=== PATIENT | female | born 1990 | race Caucasian/White ===

== ENCOUNTER 2018-07-28 07:15 | Outpatient (CLI) | payer BC ==
[2018-07-28 08:01] LABS: Appearance,Urine Cloudy (Clear); Bacteria,Urine Rare /hpf; Bilirubin,Urine Negative (Negative); Blood,Urine Negative (Negative); Color,Urine Yellow; Glucose,Urine (UA) Negative (Negative); Ketones,Urine 1+ (Negative); Leukocyte Esterase,Urine Large (Negative); Mucus,Urine Occasional /hpf; Nitrite,Urine Negative (Negative); Protein,Urine Negative (Negative); RBC,Urine 1 /hpf (0-5); Specific Gravity,Urine 1.018 (1.001-1.035); Squamous Epithelial Cell,Urine 5 /hpf (0-4); Urobilinogen,Urine <2.0 mg/dL (<2.0); WBC,Urine 20 /hpf (0-5)
[2018-07-28 08:39] LABS: Basophils % (A) 0 %; Eosinophils # (A) 0.2 k/uL (0-0.7); Eosinophils % (A) 2 %; HCT 38.1 % (34.0-46.0); HGB 12.8 gm/dL (11.4-16.0); Lymphocytes # (A) 1.9 k/uL (1.0-4.8); Lymphocytes % (A) 14 %; MCH 29.3 pg (25.0-35.0); MCHC 33.6 g/dL (31.0-37.0); MCV 87.3 fL (80.0-100.0); Mean Platelet Volume 7.8; Monocytes # (A) 0.6 k/uL (0-1.0); Monocytes % (A) 4 %; Neutrophils # (A) 10.6 k/uL (1.3-7.7); Neutrophils % (A) 78 %; Platelet Count 249 k/uL (150-450); RBC 4.37 m/uL (3.80-5.40); RDW 12.9 % (11.5-15.5); WBC 13.6 k/uL (3.8-10.6)
[2018-07-28 08:51] LABS: ALT 29 U/L (9-52); AST 17 U/L (14-36); Blood Urea Nitrogen 7 mg/dL (7-17); LDH 375 U/L (313-618); Uric Acid 4.5 mg/dL (3.7-7.4)
[2018-07-28 10:03] VITALS: BP 163/86; PULSE 80; RESP 18; TEMP 97.3
--- NOTE | 2018-07-28 19:21 | P.MSEPDOC ---
Presenting Problems - Arrival Data Date of Arrival on Unit: 07/28/18 Time of Arrival on Unit: 07:15 Mode of Transport: Ambulatory - Complaint OB-Reason for Admission/Chief Complaint: Possible Onset of Labor Comment: pt presents to triage with contractions and pressure Medical History - Information : 2 Para: 1 Term: 0 : 1 Abortions: Spontaneous or Elective: 0 Number of Living Children: 1 - Gestational Age Gestational Age by JOHN (wks/days): 33 Weeks and 5 Days Review of Systems - Review of Systems Constitutional: No problems Breast: No problems ENT: No problems Cardiovascular: No problems Respiratory: No problems Gastrointestinal: No problems Genitourinary: No problems Musculoskeletal: No problems Neurological: No problems Skin: No problems Vital Signs - Temperature Temperature: 97.3 F Temperature Source: Temporal Artery Scan - Pulse Right Brachial Pulse Rate: 80 Pulse Assessment Method: Automatic Cuff - Respirations Respiratory Rate: 18 Oxygen Delivery Method: Room Air - Blood Pressure Right Arm Blood Pressure: 163/86 Blood Pressure Mean: 111 Blood Pressure Source: Automatic Cuff Medical Screen Scoring (Pre) - Cervical Exam Dilation: 0 cm = 0 Effacement: Exam Deferred Membranes: Intact - Uterine Contractions Frequency: > 5 minutes apart = 1 Duration: > 40 seconds = 2 Intensity: N/A - Maternal Vital Signs Maternal Temperature: N/A Maternal Blood Pressure: Systolic >139 = 2 Signs of Preeclampsia: N/A Maternal Respirations: N/A - Pain Assessment Pain Location and Character: Pelvic Pain Scale Used: Numeric (1 - 10) Pain Intensity: 4 Pain Description: Pressure Pain Radiation Location: none Pain Frequency: Intermittent Pain Duration: 2 Pain Duration Units: Hours Pain Behavior: Vocalization Pain Aggravating Factors: Contractions - Maternal Trauma Maternal Trauma: N/A - Assessment Baseline FHR: 130 Heart Rate - NICHD Category: Category I (Normal) = 0 NST: Reactive Position: N/A Station: N/A - Total Score Total Score (Pre): 5 - Level of Risk Level of Risk: Low (0-5) Physician Notification (Pre) - Physician Notified Physician Notified Date: 07/28/18 Physician Notified Time: 07:50 Physician/Practitioner Notifed:: Dr. Veliz Spoke With: New Order Received: Yes - Notification Comment Comment: obtain PIH blood work Medical Screen Scoring (Post) - Cervical Exam Dilation: 0 cm = 0 Effacement: Exam Deferred Membranes: Intact - Uterine Contractions Frequency: > 5 minutes apart = 1 Duration: N/A Intensity: N/A - Maternal Vital Signs Maternal Temperature: N/A Maternal Blood Pressure: Systolic >139 = 2 Signs of Preeclampsia: N/A Maternal Respirations: N/A - Pain Assessment Pain Scale Used: Numeric (1 - 10) Pain Intensity: 4 - Maternal Trauma Maternal Trauma: N/A - Assessment Heart Rate: 130 Position: N/A - Total Score Total Score (Post): 3 - Post Treatment Level of Risk Post Treatment Level of Risk: Low (0-5) Physician Notification (Post) - Physician Notified Physician Notified Date: 07/28/18 Physician Notified Time: 09:35 Physician/Practitioner Notified:: Dr. Marion Spoke With: Dr. Marion New Order Received: Yes - Notification Comment Comment: increase fluids, off work till wednesday when she sees Dr. Lizama in the office, pt to return to triage on Wednesday for bp check and nst, Disposition - Disposition OB Disposition: Triage Discharge Date: 07/28/18 Discharge Time: 09:40 I agree with the RN Medical Screening Exam: Yes Risk & Benefit of care provided described in d/c instruction: Yes Diagnosis: GESTATIONAL HTN W/O SIGNIFICANT PROTEINURIA, THIRD TRIMESTER
== END 2018-07-28 09:40 | disposition home or self-care (01) ==
LOC: FBPOP 07:15
PROVIDERS: ATTEND Obstetrics & Gynecology
DX: O13.3 Gestational [pregnancy-induced] hypertension without significant proteinuria, third trimester (principal); Z3A.33 33 weeks gestation of pregnancy
CPT/HCPCS: 59025; 81001; 82565; 82570; 82731; 83615; 84156; 84450; 84460; 84520; 84550; 85025; 99213

== ENCOUNTER 2018-07-31 14:07 | Outpatient (CLI) | payer BC ==
[2018-07-31 14:30] VITALS: BP 135/87; PULSE 76; RESP 17; TEMP 97.7
--- NOTE | 2018-08-30 10:42 | P.MSEPDOC ---
Presenting Problems - Arrival Data Date of Arrival on Unit: 07/31/18 Time of Arrival on Unit: 14:07 Mode of Transport: Ambulatory - Complaint OB-Reason for Admission/Chief Complaint: NST, Other Comment: pt presents to triage for nst and blood pressure check, pt reports being in triage last for contractions and had elevated bps, pt has hx of pre eclampsia with first but denies issues with current , denies edema/harkins/blurred vision/ruq pain, abd soft and non tender, reports + fm, denies lof/vb/contractions at present time Medical History - Information : 2 Para: 1 Term: 0 : 1 Abortions: Spontaneous or Elective: 0 Number of Living Children: 1 - Gestational Age Gestational Age by JOHN (wks/days): 34 Weeks and 1 Days Review of Systems - Review of Systems Constitutional: No problems Breast: No problems ENT: No problems Cardiovascular: No problems Respiratory: No problems Gastrointestinal: No problems Genitourinary: No problems Musculoskeletal: No problems Neurological: No problems Skin: No problems Vital Signs - Temperature Temperature: 97.7 F Temperature Source: Oral - Pulse Right Brachial Pulse Rate: 76 Pulse Assessment Method: Automatic Cuff - Respirations Respiratory Rate: 17 Oxygen Delivery Method: Room Air O2 Sat by Pulse Oximetry: 97 - Blood Pressure Right Arm Blood Pressure: 135/87 Blood Pressure Mean: 103 Blood Pressure Source: Automatic Cuff Medical Screen Scoring (Pre) - Cervical Exam Dilation: Exam Deferred Effacement: Exam Deferred Membranes: Intact - Uterine Contractions Frequency: N/A Duration: N/A Intensity: N/A - Maternal Vital Signs Maternal Temperature: N/A Maternal Blood Pressure: N/A Signs of Preeclampsia: N/A Maternal Respirations: N/A - Pain Assessment Pain Scale Used: Numeric (1 - 10) Pain Intensity: 0 - Maternal Trauma Maternal Trauma: N/A - Assessment Baseline FHR: 125 Heart Rate - NICHD Category: Category I (Normal) = 0 NST: Reactive Position: N/A Station: N/A - Total Score Total Score (Pre): 0 - Level of Risk Level of Risk: Low (0-5) Physician Notification (Pre) - Physician Notified Physician Notified Date: 07/31/18 Physician Notified Time: 14:20 Physician/Practitioner Notifed:: Dr Alvarez Spoke With: Dr Alvarez New Order Received: Yes - Notification Comment Comment: ok to dc home if blood pressures wnl and nst reactive Physician Notification (Post) - Notification Comment Comment: Reviewed tracing and bps with dr alvarez, pt ok to dc home Disposition - Disposition OB Disposition: Discharge to home, Written follow up instructions reviewed Discharge Date: 07/31/18 Discharge Time: 15:09 I agree with the RN Medical Screening Exam: Yes Risk & Benefit of care provided described in d/c instruction: Yes Diagnosis: PREG CARE FOR PATIENT W RECURRENT PREG LOSS, THIRD TRIMESTER
== END 2018-07-31 15:09 | disposition home or self-care (01) ==
LOC: FBPOP 14:07
PROVIDERS: ATTEND Obstetrics & Gynecology
DX: O26.23 Pregnancy care for patient with recurrent pregnancy loss, third trimester (principal); Z3A.34 34 weeks gestation of pregnancy
CPT/HCPCS: 59025

== ENCOUNTER 2018-08-23 14:22 | Inpatient (IN) | payer BC ==
[2018-08-23] MEDS ORDERED: LIDOCAINE 0.5% (PF) 5 MG/ML (50 ML SDV) SQ PRN (14:35)
[2018-08-23] MEDS ORDERED: CARBOPROST TROMETHAMINE 250 MCG/ML 1 ML AMP IM PRN (14:35)
[2018-08-23] MEDS ORDERED: OXYTOCIN 10 UNIT/ML 1 ML VIAL IM PRN (14:35)
[2018-08-23] MEDS ORDERED: TERBUTALINE 1 MG/ML VIAL SQ PRN (14:35)
[2018-08-23] MEDS ORDERED: METHYLERGONOVINE 0.2 MG/ML 1 ML AMP IM PRN (14:35)
[2018-08-23] MEDS ORDERED: OXYTOCIN 30 UNITS/500 ML NS 30 UNIT in SALINE 1 500ML.BAG IV SCH (14:45)
[2018-08-23] MEDS: LACTATED RINGERS 1,000 ML IV SCH ×2 (14:50→22:42)
[2018-08-23 15:04] LABS: Appearance,Urine Clear (Clear); Bacteria,Urine Rare /hpf; Bilirubin,Urine Negative (Negative); Blood,Urine Negative (Negative); Color,Urine Light Yellow; Glucose,Urine (UA) Negative (Negative); Ketones,Urine Negative (Negative); Leukocyte Esterase,Urine Large (Negative); Nitrite,Urine Negative (Negative); PH, Urine 6.5 (5.0-8.0); Protein,Urine Negative (Negative); RBC,Urine <1 /hpf (0-5); Specific Gravity,Urine 1.003 (1.001-1.035); Squamous Epithelial Cell,Urine 3 /hpf (0-4); Urobilinogen,Urine <2.0 mg/dL (<2.0); WBC,Urine 17 /hpf (0-5)
[2018-08-23 15:07] LABS: ALT 43 U/L (9-52); AST 23 U/L (14-36); Blood Urea Nitrogen 8 mg/dL (7-17); LDH 399 U/L (313-618); Uric Acid 4.4 mg/dL (3.7-7.4)
[2018-08-23 15:13] LABS: Basophils % (A) 0 %; Eosinophils # (A) 0.2 k/uL (0-0.7); Eosinophils % (A) 1 %; HCT 38.5 % (34.0-46.0); HGB 13.1 gm/dL (11.4-16.0); Lymphocytes # (A) 1.9 k/uL (1.0-4.8); Lymphocytes % (A) 14 %; MCH 28.5 pg (25.0-35.0); MCV 83.7 fL (80.0-100.0); Mean Platelet Volume 8.9; Monocytes # (A) 0.7 k/uL (0-1.0); Monocytes % (A) 5 %; Neutrophils # (A) 10.8 k/uL (1.3-7.7); Neutrophils % (A) 78 %; Platelet Count 262 k/uL (150-450); RDW 13.5 % (11.5-15.5); WBC 13.9 k/uL (3.8-10.6)
[2018-08-23 15:14] LABS: INR 0.8 (<1.2); Partial Thromboplastin Time 23.1 sec (22.0-30.0); Prothrombin Time 9.3 sec (9.0-12.0)
[2018-08-23 15:49] VITALS: BMI 34.7
--- NOTE | 2018-08-23 17:09 | P.HPOB ---
History of Present Illness H&P Date: 08/23/18 Chief Complaint: Intrauterine growth restriction at term. This patient is a pleasant 27-year-old 2 para 1 female estimated date of confinement 09/10/2018 estimated gestational age 37-3/7 weeks who presents from my office for delivery secondary to intrauterine growth restriction. History is such that in her first she had severe IUGR at 35 weeks with severe preeclampsia and had induction of labor at that time. Patient was placed on baby aspirin this blood pressures have been good, however growth ultrasounds most recently this morning to be less than the 5th percentile. Patient is over 37 weeks now presents for delivery. Patients blood pressure on admission was 146/92 however preeclampsia labs are negative. Review of Systems Genitourinary: Reports Menstruation: Reports amenorrhea Past Medical History Past Medical History: No Reported History History of Any Multi-Drug Resistant Organisms: None Reported Past Surgical History: No Surgical Hx Reported Past Anesthesia/Blood Transfusion Reactions: No Reported Reaction Past Psychological History: No Psychological Hx Reported Smoking Status: Never smoker Past Alcohol Use History: None Reported Past Drug Use History: None Reported - Past Family History Mother Family Medical History: Cancer Father Family Medical History: Coronary Artery Disease (CAD) Medications and Allergies Home Medications Medication Instructions Recorded Confirmed Type Acyclovir 400 mg PO TID 08/23/18 08/23/18 History Erythromycin Ophth Oint [Romycin 5 mg RIGHT EYE QID 08/23/18 08/23/18 History Ophth Oint] Allergies Allergy/AdvReac Type Severity Reaction Status Date / Time No Known Allergies Allergy Verified 08/23/18 15:25 Exam Vital Signs Temp Pulse Resp BP Pulse Ox 08/23/18 14:32 98.3 F 76 18 146/92 97 Intake and Output 08/23/18 08/23/18 08/23/18 06:59 14:59 22:59 Other: Weight 83.461 kg - OBG Physical Exam Abdomen: bowel sounds normal, no diffuse tenderness, no bruit present, no guardi ng noted, no hepatomegaly, no splenomegaly, no mass Vulva: both: normal Vagina: normal moisture, no discharge Cervix: no lesion (Cervix is 1 cm and thick and -2 station vertex), no discharge Uterus: enlarged (Fundal height is 36 cm) Results blood work shows she is B+, rubella nonimmune, RPR nonreactive, hepatitis B negative, HIV nonreactive, Glucola was normal, group B strep was negative, ultrasound this morning showed a vertex infant 34 weeks 3 days which is 5 lbs. 8 oz. which is less than the 5th percentile. Result Diagrams: 08/23/18 14:45 08/23/18 14:45 Abnormal Lab Results - Last 24 Hours (Table) 08/23/18 08/23/18 08/23/18 Range/Units 14:45 14:45 14:45 WBC 13.9 H (3.8-10.6) k/uL Neutrophils # 10.8 H (1.3-7.7) k/uL Creatinine 0.43 L (0.52-1.04) mg/dL Ur Leukocyte Esterase (Negative) Urine WBC (0-5) /hpf Urine Bacteria (None) /hpf U Random Total Protein 18 H (<12) mg/dL 08/23/18 Range/Units 14:45 WBC (3.8-10.6) k/uL Neutrophils # (1.3-7.7) k/uL Creatinine (0.52-1.04) mg/dL Ur Leukocyte Esterase Large H (Negative) Urine WBC 17 H (0-5) /hpf Urine Bacteria Rare H (None) /hpf U Random Total Protein (<12) mg/dL Assessment and Plan Assessment: This is a pleasant 27-year-old 2 para 1 female 37-3/7 weeks gestation who presents to labor and delivery for induction secondary to intrauterine growth restriction at term. Patient also has gestational hypertension without evidence of preeclampsia. Plan is induction of labor and anticipate vaginal delivery. (1) 37 or more weeks gestation of Current Visit: Yes Status: Acute Code(s): YIH7478 - SNOMED Code(s): 96544718 (2) Intrauterine growth restriction (IUGR) affecting care of mother Current Visit: Yes Status: Acute Code(s): O36.5990 - MATERN CARE FOR OTH OR SUSP POOR FETL GRTH, UNSP TRI, UNSP SNOMED Code(s): 368750305 (3) Gestational hypertension Current Visit: Yes Status: Acute Code(s): O13.9 - GESTATIONAL HTN W/O SIGNIFICANT PROTEINURIA, UNSP TRIMESTER SNOMED Code(s): 837375109
[2018-08-24] MEDS: LACTATED RINGERS 1,000 ML IV SCH ×3 (00:43→22:03)
[2018-08-24] MEDS ORDERED: fentaNYL (PF) 50 MCG/ML 5 ML AMP ONE (00:44)
[2018-08-24] MEDS ORDERED: ROPIVACAINE 5MG/ML 20ML VIAL ONE (00:44)
[2018-08-24] MEDS ORDERED: SODIUM CHLORIDE 0.9% 100 ML BAG ONE (00:44)
[2018-08-24] MEDS ORDERED: AMPICILLIN 2,000 MG in SODIUM CHLORIDE 0.9% 100 ML IVPB STA (05:49)
[2018-08-24] MEDS ORDERED: ceFAZolin IN SWFI 2 GM/20 ML SYRINGE IVP ONE (07:26)
[2018-08-24] MEDS ORDERED: CITRIC ACID-SODIUM CITRATE 15 ML CUP PO ONE (07:26)
[2018-08-24] MEDS ORDERED: KETOROLAC 30 MG/ML 1 ML VIAL ONE (07:40)
[2018-08-24] MEDS ORDERED: PHENYLEPHRINE-0.9% NACL SYG 1 MG/10 ML SYRINGE ONE (07:40)
[2018-08-24] MEDS ORDERED: NALBUPHINE 10 MG/ML (1 ML AMP) ONE (07:40)
[2018-08-24] MEDS ORDERED: OXYTOCIN 10 UNIT/ML 1 ML VIAL ONE (07:40)
[2018-08-24] MEDS ORDERED: ONDANSETRON 4 MG/2 ML VIAL ONE (07:40)
[2018-08-24] MEDS ORDERED: MORPHINE SULFATE (PF) 0.3 MG/0.3 ML SYR ONE (07:40)
[2018-08-24] MEDS ORDERED: diphenhydrAMINE 50 MG/ML 1 ML VIAL ONE (07:40)
[2018-08-24] MEDS ORDERED: ONDANSETRON 4 MG/2 ML VIAL IVP PRN (08:49)
[2018-08-24] MEDS ORDERED: MEASLES-MUMPS-RUBELLA VACC/PF 12,500 UNIT/0.5 ML VIAL SQ ONE (08:49)
[2018-08-24] MEDS ORDERED: diphenhydrAMINE 50 MG/ML 1 ML VIAL IVP PRN (08:49)
[2018-08-24] MEDS ORDERED: diphenhydrAMINE 25 MG CAP PO PRN (08:49)
[2018-08-24] MEDS ORDERED: ACETAMINOPHEN TAB 325 MG TAB PO PRN (08:49)
[2018-08-24] MEDS ORDERED: METOCLOPRAMIDE 5 MG/ML 2 ML VIAL IVP PRN (08:49)
[2018-08-24] MEDS ORDERED: OXYTOCIN 20 UNITS/1000 ML NS 1,000 ML IV SCH (08:49)
[2018-08-24] MEDS ORDERED: NALOXONE 0.4 MG/ML 1 ML VIAL IV PRN (08:49)
[2018-08-24] MEDS ORDERED: ZOLPIDEM 5 MG TAB PO PRN (08:49)
--- NOTE | 2018-08-24 09:44 | P.OP ---
Date of Procedure: 08/24/18 Preoperative Diagnosis: #1: 37-3/7 week intrauterine . #2: Intrauterine growth restriction. #3: Gestational hypertension #4: Cephalopelvic dystocia Postoperative Diagnosis: Same Procedure(s) Performed: Primary low transverse section Anesthesia: spinal Surgeon: Vahe Lizama [employer] Shop Mechanic #1: Donovan Alvarez Estimated Blood Loss (ml): 800 Pathology: other (Placenta) Condition: stable Disposition: floor Indications for Procedure: Please see dictated H&P for intimate details of this patient's admission. In brief summary this is a pleasant 27-year-old 2 para 1 female 37-3/7 weeks gestation admitted for delivery secondary to severe intrauterine growth restriction. Patient is admitted is 1 cm dilated has artificial rupture membranes for clear fluid. Labor is induced with Pitocin per protocol. Patient gets to approximately 7 cm dilated and has no descent of the head beyond - 1 station after approximately 4-6 hours. This time the patient is requesting section for delivery. Patient I did discuss the surgery and risks and risks of infection, bleeding, possible injury bowel, bladder, vessels, and/or other organs. Patient also understands risk of DVT and pulmonary embolism. Operative Findings: This is a vigorous viable female Apgars 8 and 9 delivery time was 0752 hours. Description of Procedure: This patient has a Hernandez catheter placed to straight drain. She is subsequently taken to the operating room where spinal anesthetic is administered without incident. With adequate level of anesthesia she has abdominal prep and drape. Scalpels and taken Pfannenstiel skin incision is then made. A second scalpel is taken down the fascia the fascia scored with a knife. Fascial incision extended bilaterally using the Flores scissors. Fascia is dissected sharply off the rectus muscles. Rectus muscles are the peritoneum identified and entered sharply. Peritoneal incision extended superior and inferior without difficulty. Bladder blade is then placed. Bladder peritoneum was taken off the lower uterine segment. Scalpels and taken low transverse uterine incision is then made. Using a hemostat I enter the uterine cavity bluntly and there is loss of small amount of clear fluid. Incision is then extended. 's head is then guided through the incision with fundal pressure and delivered. Mouth and nares are bulb suctioned there is no evidence of a nuchal cord. Then have deliver the rest this 's body. This is a vigorous viable female Apgars are 8 and 9 delivery time was 0752 hours. After delivery of the the umbilical cord is doubly clamped and cut it appears to be trivascular. The infant is handed off to the nurses in attendance. Placenta is then manually extracted intact. Uterus is then externalized uterine incision demarcated with Chow clamps. Uterine incision closed using 0 Vicryl running locked fashion 2 layers. Excellent hemostasis is noted. Bladder peritoneum was then reapproximated using a 3-0 Vicryl. Excess fluid is removed from the abdomen and pelvis. Uterus tubes and ovaries appear normal for term gestation. The parietal peritoneum was then closed using 0 Vicryl running fashion. Rectus muscles reapproximated in 0 Vicryl interrupted fashion. Fascial incision then closed using 0 PDS. Fascial incision is intact and hemostatic. Subcutaneous tissues and closed using a 3-0 Vicryl. Skin is and closed using chriss. All counts correct 3. There is no complications. and mother stable in delivery room.
[2018-08-24] MEDS: SENNOSIDES-DOCUSATE SODIUM 1 EACH TAB PO SCH ×2 (09:53→19:47)
[2018-08-24] MEDS: ceFAZolin IN SWFI 2 GM/20 ML SYRINGE IVP SCH ×2 (15:13→23:08)
[2018-08-24] MEDS: KETOROLAC 30 MG/ML 1 ML VIAL IVP PRN (19:46)
[2018-08-25] MEDS: KETOROLAC 30 MG/ML 1 ML VIAL IVP PRN (03:36)
--- NOTE | 2018-08-25 06:22 | P.PNOBGPC ---
Subjective - Subjective Patient reports: Reports appetite normal, Reports voiding normally, Reports pain well controlled, Reports ambulating normally [place]: doing well Objective - Vital Signs Latest vital signs: Vital Signs Temp Pulse Resp BP Pulse Ox 08/25/18 04:00 97.3 F L 81 16 130/73 100 08/25/18 00:00 98.3 F 83 16 130/83 100 08/24/18 20:00 98.3 F 95 16 127/82 08/24/18 16:00 99.8 F H 79 16 115/75 08/24/18 11:38 98.7 F 08/24/18 11:28 102 H 15 149/73 95 08/24/18 10:19 99.7 F H 82 16 118/63 08/24/18 09:49 99.2 F 72 14 115/58 08/24/18 09:19 80 16 120/66 08/24/18 09:04 75 14 109/62 98 08/24/18 08:49 73 14 115/69 97 08/24/18 08:34 77 16 108/61 97 08/24/18 08:19 96.8 F L 84 16 138/59 98 Intake and Output 08/24/18 08/24/18 08/25/18 14:59 22:59 06:59 Intake Total 700 Output Total 1500 900 200 Balance -800 -900 -200 Intake: IV 700 Output: Urine 700 900 200 Uretheral (Hernandez) 400 Estimated Blood Loss 800 Other: Voiding Method Indwelling Catheter - Exam Lungs: bilateral: normal Chest: Normal S1, Normal S2 Extremities: Present: normal Abdomen: Present: normal appearance, soft. Absent: distention, tenderness Incision: Present: normal, dry, intact Uterus: Present: normal, firm Assessment and Plan Assessment: Postoperative day #1. Patient is resting without complaints. Vital signs are stable. Blood pressures are excellent. Uterus is firm nontender and her incision is intact and dry. CBC is pending. My impression this is a normal postoperative course. Plan is to continue routine postoperative care, check a CBC, encourage ambulation, allow the patient to shower, and continue regular diet. (1) 37 or more weeks gestation of Current Visit: Yes Status: Acute Code(s): OSO4246 - SNOMED Code(s): 82573369 (2) Intrauterine growth restriction (IUGR) affecting care of mother Current Visit: Yes Status: Acute Code(s): O36.5990 - MATERN CARE FOR OTH OR SUSP POOR FETL GRTH, UNSP TRI, UNSP SNOMED Code(s): 628210860 (3) Gestational hypertension Current Visit: Yes Status: Acute Code(s): O13.9 - GESTATIONAL HTN W/O SIGNIFICANT PROTEINURIA, UNSP TRIMESTER SNOMED Code(s): 732139356
[2018-08-25] MEDS: HYDROcodone/APAP 5-325MG 1 EACH TAB PO PRN ×3 (06:40→23:33)
--- NOTE | 2018-08-25 07:30 | P.PN ---
Progress Note - Text Anesthesia POD 1. Patient is status post section under spinal anesthesia with intra-thecal preservative free morphine 300 g. Mild pruritus, excellent post-op analgesia, and no headache or other complications.
[2018-08-25 07:41] LABS: Basophils % (A) 0 %; Eosinophils # (A) 0.2 k/uL (0-0.7); Eosinophils % (A) 2 %; HCT 32.4 % (34.0-46.0); HGB 11.1 gm/dL (11.4-16.0); Lymphocytes # (A) 1.8 k/uL (1.0-4.8); Lymphocytes % (A) 15 %; MCHC 34.3 g/dL (31.0-37.0); MCV 84.7 fL (80.0-100.0); Mean Platelet Volume 8.6; Monocytes # (A) 0.8 k/uL (0-1.0); Monocytes % (A) 6 %; Neutrophils # (A) 9.2 k/uL (1.3-7.7); Neutrophils % (A) 75 %; Platelet Count 209 k/uL (150-450); RBC 3.83 m/uL (3.80-5.40); RDW 13.6 % (11.5-15.5); WBC 12.2 k/uL (3.8-10.6)
[2018-08-25] MEDS: SENNOSIDES-DOCUSATE SODIUM 1 EACH TAB PO SCH ×2 (08:44→21:06)
[2018-08-25] MEDS: IBUPROFEN 600 MG TAB PO PRN ×2 (14:49→20:20)
[2018-08-26] MEDS: IBUPROFEN 600 MG TAB PO PRN ×3 (04:06→20:06)
--- NOTE | 2018-08-26 06:39 | P.PNOBGPC ---
Subjective - Subjective Patient reports: Reports appetite normal, Reports voiding normally, Reports pain well controlled, Reports ambulating normally : doing well Objective - Vital Signs Latest vital signs: Vital Signs Temp Pulse Resp BP Pulse Ox 08/25/18 23:26 97.7 F 80 20 138/78 08/25/18 20:30 98.0 F 77 20 135/86 99 08/25/18 15:46 98 F 90 16 119/65 08/25/18 12:00 98.1 F 87 17 120/75 97 08/25/18 08:00 98.7 F 87 16 117/69 99 Intake and Output 08/25/18 08/25/18 08/26/18 14:59 22:59 06:59 Other: # Voids 1 # Bowel Movements 2 - Exam Lungs: bilateral: normal Chest: Normal S1, Normal S2 Extremities: Present: normal Abdomen: Present: normal appearance, soft. Absent: distention, tenderness Incision: Present: normal, dry, intact Uterus: Present: normal, firm - Labs Labs: Abnormal Lab Results - Last 24 Hours (Table) 08/25/18 Range/Units 06:55 WBC 12.2 H (3.8-10.6) k/uL Hgb 11.1 L (11.4-16.0) gm/dL Hct 32.4 L (34.0-46.0) % Neutrophils # 9.2 H (1.3-7.7) k/uL Assessment and Plan Assessment: Postoperative day #2. Patient is resting without complaints and wishes to go home. Her baby is getting some phototherapy so we will dependent whether not baby goes home. Uterus is firm nontender, her incision is intact and dry. Patient's CBC yesterday was normal. Patient is tolerating regular diet, ambulating, urinating without difficulty. Plan today is to continue routine postoperative care and discharge home later she wishes. (1) 37 or more weeks gestation of Current Visit: Yes Status: Acute Code(s): [id number] - SNOMED Code(s): 40699986 (2) Intrauterine growth restriction (IUGR) affecting care of mother Current Visit: Yes Status: Acute Code(s): O36.5990 - MATERN CARE FOR OTH OR SUSP POOR FETL GRTH, UNSP TRI, UNSP SNOMED Code(s): 836371631 (3) Gestational hypertension Current Visit: Yes Status: Acute Code(s): O13.9 - GESTATIONAL HTN W/O SIGNIFICANT PROTEINURIA, UNSP TRIMESTER SNOMED Code(s): 689510869
--- NOTE | 2018-08-26 06:46 | P.DS ---
Providers Date of admission: 08/23/18 14:22 Expected date of discharge: 08/26/18 Attending physician: Vahe Lizama Primary care physician: Stated None - Discharge Diagnosis(es) (1) 37 or more weeks gestation of Current Visit: Yes Status: Acute (2) Intrauterine growth restriction (IUGR) affecting care of mother Current Visit: Yes Status: Acute (3) Gestational hypertension Current Visit: Yes Status: Acute Hospital Course: Please see dictated H&P for intimate details of this patient's admission. Brief summary is a pleasant 27-year-old 2 para 1 female 37-3/7 weeks gestation is admitted to labor and delivery for delivery secondary to intrauterine growth restriction and gestational hypertension. Patient is induction of labor progresses to about 7 cm where she states for long period of time and therefore undergoes a primary section for viable female infant. Please see dictated operative note. Postoperative and 2 she felt to be stable for discharge home follow up with me in 1 week for an incision check. Procedures: Induction of labor and primary low transverse section. Patient Condition at Discharge: Good Plan - Discharge Summary New Discharge Prescriptions: New Ibuprofen [Motrin] 600 mg PO Q6HR PRN #40 tab PRN Reason: Mild Pain Or Fever >= 100.5 HYDROcodone/APAP 5-325MG [[place] 5-325] 2 each PO Q4HR PRN 3 Days #36 tab PRN Reason: Moderate Pain No Action Acyclovir 400 mg PO TID Erythromycin Ophth Oint [Romycin Ophth Oint] 5 mg RIGHT EYE QID Discharge Medication List Acyclovir 400 mg PO TID 08/23/18 [History] Erythromycin Ophth Oint [Romycin Ophth Oint] 5 mg RIGHT EYE QID 08/23/18 [History] HYDROcodone/APAP 5-325MG [[place] 5-325] 2 each PO Q4HR PRN 3 Days #36 tab 08/26/18 [Rx] Ibuprofen [Motrin] 600 mg PO Q6HR PRN #40 tab 08/26/18 [Rx] Follow up Appointment(s)/Referral(s): Vahe Lizama MD [STAFF PHYSICIAN] - 09/02/18 1:30 pm (Patient also has a visit on October 07 at 10:45 AM.) Patient Instructions/Handouts: (DC) Activity/Diet/Wound Care/Special Instructions: No heavy lifting or strenuous activity for 6 weeks. No intercourse or anything per vagina for 6 weeks. Please call if any fever, chills, excessive vaginal bleeding, and/or abdominal pain. Discharge Disposition: HOME SELF-CARE
[2018-08-26] MEDS: SENNOSIDES-DOCUSATE SODIUM 1 EACH TAB PO SCH (08:09)
[2018-08-26] MEDS: HYDROcodone/APAP 5-325MG 1 EACH TAB PO PRN (09:05)
[2018-08-26 09:39] VITALS: RESP 16
[2018-08-27] MEDS: SENNOSIDES-DOCUSATE SODIUM 1 EACH TAB PO SCH (00:09)
[2018-08-27] MEDS: IBUPROFEN 600 MG TAB PO PRN ×2 (04:20→10:49)
[2018-08-27 09:18] VITALS: BP 124/63; PULSE 82; TEMP 98
== END 2018-08-27 16:35 | disposition home or self-care (01) | DRG 788 ==
LOC: 4FBP 14:22
PROVIDERS: ADMIT Obstetrics & Gynecology; ATTEND Obstetrics & Gynecology
PROC: 3E033VJ Introduction of Other Hormone into Peripheral Vein, Percutaneous Approach (ICD-10-PCS; 2018-08-23)
PROC: 10907ZC Drainage of Amniotic Fluid, Therapeutic from Products of Conception, Via Natural or Artificial Opening (ICD-10-PCS; 2018-08-23)
PROC: 00HU33Z Insertion of Infusion Device into Spinal Canal, Percutaneous Approach (ICD-10-PCS; 2018-08-24)
PROC: 3E0134Z Introduction of Serum, Toxoid and Vaccine into Subcutaneous Tissue, Percutaneous Approach (ICD-10-PCS; 2018-08-24)
PROC: 3E0R3BZ Introduction of Anesthetic Agent into Spinal Canal, Percutaneous Approach (ICD-10-PCS; 2018-08-24)
PROC: 10D00Z1 Extraction of Products of Conception, Low, Open Approach (ICD-10-PCS; principal; 2018-08-24 07:40)
DX: O36.5930 Maternal care for other known or suspected poor fetal growth, third trimester, not applicable or unspecified (principal); O13.4 Gestational [pregnancy-induced] hypertension without significant proteinuria, complicating childbirth; O66.9 Obstructed labor, unspecified; Z3A.37 37 weeks gestation of pregnancy; Z37.0 Single live birth; Z23 Encounter for immunization; L29.9 Pruritus, unspecified; Z79.899 Other long term (current) drug therapy; Z82.49 Family history of ischemic heart disease and other diseases of the circulatory system; Z80.9 Family history of malignant neoplasm, unspecified
CPT/HCPCS: 81001; 82565; 82570; 83615; 84156; 84450; 84460; 84520; 84550; 85025; 85610; 85730; 86850; 86900; 86901; 88307; 90707

== ENCOUNTER → 2018-08-23 | Outpatient (CLI) | payer BC ==
--- NOTE | 2018-08-23 13:41 | US ---
EXAMINATION TYPE: US OB >= 14 wk fetus DATE OF EXAM: 08/23/2018 COMPARISON: None CLINICAL HISTORY: P05.10 SGA TECHNIQUE: Transabdominal (TA) GESTATIONAL AGE / DATING Physician Established: (37 weeks/3 days) EDC: 09/10/18 Dates by LMP: (37 weeks/3 days) EDC: 09/10/18 Dates by First Scan: No previous here Dates by Current Scan: (34 weeks/3 days) EDC: 10/01/18 SURVEY IUP: Single PLACENTA: Anterior PREVIA: No Previa JENSEN: 9.0 cm CERVICAL LENGTH (transabdominal: norm > 3.0cm): 3.2 cm BIOMETRY PRESENTATION: Vertex BPD: 8.5 cm 34 weeks / 3 days HC: 30.5 cm 34weeks / 0 days AC: 30.5 cm 34 weeks / 3 days FL: 6.9 cm 35 weeks / 4 days ESTIMATED WEIGHT IN GRAMS: 2497 grams ESTIMATED WEIGHT IN LBS/OZ: 5 lbs. 8 oz. WEIGHT PERCENTAGE BASED ON ESTABLISHED DATES: 5% HC/AC: 1.0 FL/AC: 22.7 HEART RATE: 145 bpm RHYTHM: Normal Office called with preliminary. Notified Debra that JENSEN was 9 and patient measures 3 weeks behind. Note is made that anatomy assessment was not performed. IMPRESSION: Viable 34 weeks 3 days with EDC of 10/01/2018 and heart rate of 145 bpm. The JENSEN measures 9 cm.
== END | disposition home or self-care (01) ==
LOC: RADUSWWP 12:55
PROVIDERS: ATTEND Obstetrics & Gynecology
DX: P05.10 Newborn small for gestational age, unspecified weight (principal)
CPT/HCPCS: 76805

== ENCOUNTER 2021-03-19 12:38 | Inpatient (IN) | payer BC ==
[2021-03-19 13:29] LABS: Basophils % (A) 0 %; Eosinophils # (A) 0.1 k/uL (0-0.7); Eosinophils % (A) 1 %; HCT 38.3 % (34.0-46.0); HGB 13.2 gm/dL (11.4-16.0); Lymphocytes # (A) 1.6 k/uL (1.0-4.8); Lymphocytes % (A) 13 %; MCH 29.2 pg (25.0-35.0); MCHC 34.3 g/dL (31.0-37.0); Mean Platelet Volume 9.2; Monocytes # (A) 0.7 k/uL (0-1.0); Monocytes % (A) 5 %; Neutrophils # (A) 9.7 k/uL (1.3-7.7); Neutrophils % (A) 78 %; Platelet Count 255 k/uL (150-450); RBC 4.51 m/uL (3.80-5.40); RDW 13.3 % (11.5-15.5); WBC 12.4 k/uL (3.8-10.6)
[2021-03-19 13:29] LABS: Appearance,Urine Clear (Clear); Bilirubin,Urine Negative (Negative); Blood,Urine Negative (Negative); Color,Urine Yellow; Glucose,Urine (UA) Negative (Negative); Ketones,Urine Negative (Negative); Leukocyte Esterase,Urine Negative (Negative); Nitrite,Urine Negative (Negative); PH, Urine 6.5 (5.0-8.0); Protein,Urine Negative (Negative); Specific Gravity,Urine 1.008 (1.001-1.035); Urobilinogen,Urine <2.0 mg/dL (<2.0)
[2021-03-19] MEDS ORDERED: LACTATED RINGERS 1,000 ML IV ONE (13:40)
[2021-03-19] MEDS ORDERED: CITRIC ACID-SODIUM CITRATE 15 ML CUP PO ONE (13:40)
[2021-03-19 13:47] LABS: Creatinine,Urine Random 51.3 mg/dL; Protein/Creatinine Ratio,Urine 0.273
[2021-03-19 13:50] LABS: ALT 30 U/L (4-34); AST 27 U/L (14-36); African American GFR (CKD) >90 (>60 ml/min/1.73 sqM); Blood Urea Nitrogen 11 mg/dL (7-17); LDH 383 U/L (313-618); Non-African American GFR(CKD) >90 (>60 ml/min/1.73 sqM); Uric Acid 4.1 mg/dL (3.7-7.4)
[2021-03-19 13:58] LABS: INR 0.8 (<1.2); Prothrombin Time 9.4 sec (9.0-12.0)
[2021-03-19 14:06] LABS: Partial Thromboplastin Time 21.5 sec (22.0-30.0)
[2021-03-19] MEDS: LACTATED RINGERS 1,000 ML IV SCH ×2 (15:30→20:49)
[2021-03-19] MEDS ORDERED: MORPHINE SULFATE (PF) 0.3 MG/0.3 ML SYR ONE (16:25)
[2021-03-19] MEDS ORDERED: ONDANSETRON 4 MG/2 ML VIAL ONE (16:25)
[2021-03-19] MEDS ORDERED: PHENYLEPHRINE-0.9% NACL SYG 1,000 MCG/10 ML SYRINGE ONE (16:25)
[2021-03-19] MEDS ORDERED: KETOROLAC 15 MG/ML 1 ML VIAL ONE (16:25)
[2021-03-19] MEDS ORDERED: OXYTOCIN 30 UNITS/500 ML NS BAG IV ONE (16:25)
[2021-03-19] MEDS ORDERED: SIMETHICONE 80 MG CHEWABLE PO PRN (17:17)
[2021-03-19] MEDS ORDERED: ONDANSETRON 4 MG/2 ML VIAL IVP PRN (17:17)
[2021-03-19] MEDS ORDERED: ZOLPIDEM 5 MG TAB PO PRN (17:17)
[2021-03-19] MEDS ORDERED: NALOXONE 0.4 MG/ML 1 ML VIAL IV PRN (17:17)
[2021-03-19] MEDS ORDERED: LANOLIN CREAM 5 GM TUBE TOPICAL PRN (17:17)
[2021-03-19] MEDS ORDERED: METOCLOPRAMIDE 5 MG/ML 2 ML VIAL IVP PRN (17:17)
[2021-03-19] MEDS ORDERED: diphenhydrAMINE 25 MG CAP PO PRN (17:17)
--- NOTE | 2021-03-19 17:25 | P.HPOB ---
History of Present Illness H&P Date: 03/19/21 Chief Complaint: Gestational hypertension This patient is a pleasant 30-year-old 3 para 2 female estimated date of confinement 04/09/2021 estimated gestational age 37-0/7 weeks who presented to my office today for a routine OB visit was found to have elevated blood p ressures in the 140s over 90s. Patient is a history of gestational hypertension with previous pregnancies and has been on a baby aspirin. Preeclampsia evaluation was negative but due to the persistent hypertension and is now recommended proceed with delivery. Patient does have an unfavorable cervix and previous section and therefore we'll proceed with delivery by section. care is also been complicated by a possible persistent left umbilical vein however this has not been confirmed due to its finding late in the and an inability to get her into see maternal medicine. care otherwise is uncomplicated. Review of Systems Genitourinary: Reports Menstruation: Reports amenorrhea Past Medical History Past Medical History: No Reported History Additional Past Medical History / Comment(s): Gestational hypertension 2 History of Any Multi-Drug Resistant Organisms: None Reported Past Surgical History: Section Past Anesthesia/Blood Transfusion Reactions: No Reported Reaction Past Psychological History: No Psychological Hx Reported Smoking Status: Never smoker Past Alcohol Use History: None Reported Past Drug Use History: None Reported - Past Family History Mother Family Medical History: Cancer Father Family Medical History: Coronary Artery Disease (CAD) Medications and Allergies Home Medications Medication Instructions Recorded Confirmed Type Aspirin 81 mg PO DAILY 03/19/21 03/19/21 History Pediatric Multivitamin No.30 1 tab PO DAILY 03/19/21 03/19/21 History [Multivitamin Children's Gummies] Allergies Allergy/AdvReac Type Severity Reaction Status Date / Time No Known Allergies Allergy Verified 03/19/21 12:57 Exam Vital Signs Pulse Resp BP 03/19/21 13:42 69 16 134/91 Intake and Output 03/19/21 03/19/21 03/19/21 06:59 14:59 22:59 Other: # Voids 1 Weight 85.729 kg - OBG Physical Exam Abdomen: bowel sounds normal, no diffuse tenderness, no bruit present, no guarding noted, no hepatomegaly, no splenomegaly, no mass Vulva: both: normal Vagina: normal moisture, no discharge Cervix: no lesion (Cervix is closed and thick), no discharge Uterus: enlarged, normal contour Results blood work shows she is B+, rubella immune, RPR nonreactive, hepatitis B negative, HIV is nonreactive, group B strep was negative, ultrasounds as above, Glucola was normal, Result Diagrams: 03/19/21 13:20 03/19/21 13:20 Abnormal Lab Results - Last 24 Hours (Table) 03/19/21 03/19/21 03/19/21 Range/Units 13:20 13:20 13:20 WBC 12.4 H (3.8-10.6) k/uL Neutrophils # 9.7 H (1.3-7.7) k/uL APTT 21.5 L (22.0-30.0) sec Creatinine 0.46 L (0.52-1.04) mg/dL Assessment and Plan (1) Previous delivery affecting Narrative/Plan: This is a pleasant 30-year-old 3 para 2 female 37-0/7 weeks gestation admitted to labor and delivery for evaluation of gestational hypertension and for delivery. Patient had previous section is unfavorable cervix therefore proceed with section at this time. Patient does understand this procedure and risks and risks of infection, bleeding, possible injury bowel, bladder, vessels, and/or other organs. All the patient's questions are answered and a written consent obtained. Current Visit: Yes Status: Acute Code(s): O34.219 - MATERNAL CARE FOR UNSP TYPE SCAR FROM PREVIOUS DEL SNOMED Code(s): 233262007 (2) 37 or more weeks gestation of Current Visit: No Status: Acute Code(s): TEJ9580 - SNOMED Code(s): 27240281 (3) Gestational hypertension Current Visit: No Status: Acute Code(s): O13.9 - GESTATIONAL HTN W/O SIGNIFICANT PROTEINURIA, UNSP TRIMESTER SNOMED Code(s): 85504131
[2021-03-19] MEDS ORDERED: OXYTOCIN 30 UNITS/500 ML NS 30 UNIT in SALINE 1 500ML.BAG IV SCH (17:30)
--- NOTE | 2021-03-19 17:30 | P.OP ---
Date of Procedure: 03/19/21 Preoperative Diagnosis: #1: 37-0/7 weeks intrauterine . #2: Gestational hypertension. #3: Previous section with unfavorable cervix. Postoperative Diagnosis: Same Procedure(s) Performed: Repeat low transverse section Anesthesia: spinal Surgeon: Vahe Lizama Digital Music Instructor #1: Donovan Alvarez Estimated Blood Loss (ml): 600 Pathology: other (Placenta) Condition: stable Disposition: floor Indications for Procedure: Please see dictated H&P for intimate details of this patient's admission. Brief summary is a pleasant 30-year-old 3 para 2 female 37 0/7 weeks gestation admitted to labor and delivery for evaluation of gestational hypertension. Patient's also previous section with an unfavorable cervix therefore plan is to proceed with delivery by repeat section. Patient understands this procedure and risks and risks of infection, bleeding, possible injury bowel, bladder, vessels, and/or other organs. All the patient's questions are answered written consent obtained. Operative Findings: This is a vigorous viable male infant Apgars 8 and 9 delivery time was 1649 hrs. Description of Procedure: This patient has a Hernandez catheter placed to straight drain. She is subsequently taken to the operating room where she sat up and spinal anesthetic is administered without incident. With an adequate level of anesthesia she has abdominal prep and drape. Scalpels and taken the previous Pfannenstiel incision is incised. A second scalpel is taken down the fascia the fascia scored with a knife. Fascial incision extended bilaterally using the Flores scissors. Fascia is then dissected off the rectus muscles sharply. Rectus muscles are peritoneum identified and entered sharply. Peritoneal incision extended superior and inferior without difficulty. Bladder blade is then placed. Bladder peritoneum was taken sharply off the lower uterine segment. Scalpels and taken a low transverse uterine incision is then made. Using a hemostat I into the uterine cavity bluntly. There is loss of clear fluid. This incision is then extended bluntly and the 's head is guided through the incision with fundal pressure. Mouth and nares are bulb suctioned. There is no evidence of a nuchal cord. We then have delivery the rest this infant's body this is a vigorous viable male Apgars are 8 and 9 delivery time was 1649 hrs. After delivery of the infant the umbilical cord is doubly clamped and cut appears to be trivascular. The placenta is then manually extracted intact. Uterus is then externalized and uterine incision demarcated with Chow clamps. All tissue is removed. Uterine incision then closed in 0 Vicryl running locked fashion 2 layers. Excellent hemostasis is noted. Bladder peritoneum was then closed using a 3-0 Vicryl. Excess fluid is removed from the abdomen and pelvis. Uterus placed back into the abdomen. The parietal peritoneum was then closed using a 0 Vicryl running fashion. Rectus muscles re approximated in 0 Vicryl interrupted fashion. Fascial incision closed using 0 PDS. Fascial incision is intact and hemostatic. Subcutaneous tissue is then closed using a 3-0 Vicryl. Skin is and closed using chriss. All counts are correct 3. There are no complications. Infant and mother are stable in the operating room and taken a birthing suite in satisfactory condition.
--- NOTE | 2021-03-19 19:51 | P.MSEPDOC ---
Presenting Problems - Arrival Data Date of Arrival on Unit: 03/19/21 Time of Arrival on Unit: 13:30 Mode of Transport: Ambulatory - Complaint OB-Reason for Admission/Chief Complaint: Other Comment: Patient seen at Dr. Lizarraga office sent to out triage for hypertensive BP x2. Medical History - Information : 3 Para: 2 Term: 1 : 1 Abortions: Spontaneous or Elective: 0 Number of Living Children: 1 - Gestational Age Gestational Age by JOHN (wks/days): 37 Weeks and 0 Days - History Comment: Hypertension Review of Systems - Review of Systems Constitutional: No problems Breast: No problems ENT: No problems Cardiovascular: No problems Respiratory: No problems Gastrointestinal: No problems Genitourinary: No problems Musculoskeletal: No problems Neurological: No problems Skin: No problems Vital Signs - Temperature Temperature: 97.7 F Temperature Source: Oral - Pulse Pulse Oximetery Pulse Rate: 75 Pulse Assessment Method: Pulse Oximetry - Respirations Respiratory Rate: 16 Oxygen Delivery Method: Room Air O2 Sat by Pulse Oximetry: 96 - Blood Pressure Right Arm Blood Pressure: 131/79 Blood Pressure Mean: 96 Blood Pressure Source: Automatic Cuff Medical Screen Scoring - Assessment - Baby A Baseline FHR: 120 Heart Rate - NICHD Category: Category I (Normal) Physician Notification - Physician Notified Physician Notified Date: 03/19/21 Physician Notified Time: 13:30 Physician: Vahe Lizama New Order Received: Yes - Notification Comment Comment: admit for repeat c section. Maternal Triage Index - Maternal Triage Index Presenting for scheduled procedure w/no complaint: No - Stat/Priority 1 Stat Priority 1: No - Urgent/Priority 2 Urgent Priority 2: No - Prompt/Priority 3 Prompt Priority 3: No - Non-Urgent/Priority 4 Non-Urgent Priority 4: No - Scheduled/Requesting Priority 5 Scheduled/Requesting Priority 5: Yes Criteria Met for Priority 5: Patient arrived from Dr. Lizarraga office with Hypertensive BP x2. Disposition - Disposition OB Disposition: Admit I agree with the RN Medical Screening Exam: Yes Case reviewed; plan agreed upon as documented in EMR&OBIX.: Yes Diagnosis: GESTATIONAL HTN W/O SIGNIFICANT PROTEINURIA, THIRD TRIMESTER
[2021-03-19] MEDS: KETOROLAC 15 MG/ML 1 ML VIAL IVP SCH (20:49)
[2021-03-19] MEDS: SENNOSIDES-DOCUSATE SODIUM 1 EACH TAB PO PRN (20:49)
[2021-03-19] MEDS: diphenhydrAMINE 50 MG/ML 1 ML VIAL IVP PRN (20:50)
[2021-03-20] MEDS: KETOROLAC 15 MG/ML 1 ML VIAL IVP SCH ×3 (03:21→18:05)
[2021-03-20] MEDS: LACTATED RINGERS 1,000 ML IV SCH ×2 (06:18→14:56)
--- NOTE | 2021-03-20 06:42 | P.PNOBGPC ---
Subjective - Subjective Patient reports: Reports appetite normal, Reports voiding normally, Reports pain well controlled, Reports ambulating normally : doing well Objective - Vital Signs Latest vital signs: Vital Signs Temp Pulse Resp BP Pulse Ox 03/20/21 04:00 98.2 F 81 16 132/56 03/20/21 00:00 97.8 F 66 18 140/79 03/19/21 20:00 97.9 F 69 16 137/81 03/19/21 19:51 97.7 F 75 16 131/79 96 03/19/21 19:25 97.7 F 69 18 137/81 100 03/19/21 18:55 97.7 F 75 16 131/79 96 03/19/21 18:24 97.5 F L 62 16 121/77 98 03/19/21 18:10 97.4 F L 68 16 121/77 97 03/19/21 17:55 97.9 F 70 16 115/69 97 03/19/21 17:40 97.5 F L 70 16 115/69 94 L 03/19/21 17:25 97.1 F L 90 16 122/71 99 03/19/21 13:42 69 16 134/91 Intake and Output 03/19/21 03/19/21 03/20/21 14:59 22:59 06:59 Output Total 1300 Balance -1300 Output: Urine 1300 Uretheral (Hernandez) 850 Other: Voiding Method Indwelling Catheter Indwelling Catheter # Voids 1 1 Weight 85.729 kg - Exam Lungs: bilateral: normal Chest: Normal S1, Normal S2 Extremities: Present: normal Abdomen: Present: normal appearance, soft. Absent: distention, tenderness Incision: Present: normal, dry, intact Uterus: Present: normal, firm - Labs Labs: Abnormal Lab Results - Last 24 Hours (Table) 03/19/21 03/19/21 03/19/21 Range/Units 13:20 13:20 13:20 WBC 12.4 H (3.8-10.6) k/uL Neutrophils # 9.7 H (1.3-7.7) k/uL APTT 21.5 L (22.0-30.0) sec Creatinine 0.46 L (0.52-1.04) mg/dL Assessment and Plan Assessment: postoperative day #1. Patient is resting without complaints. Vital signs are stable and she is afebrile. Uterus is firm nontender and she is having normal lochia. Her incision is intact and dry. My impression this is a normal postoperative course. Blood pressures are stable and did not require treatment. Plan is to check a CBC, encourage ambulation, encourage urination, and advanced to a regular diet. (1) Previous delivery affecting Current Visit: Yes Status: Acute Code(s): O34.219 - MATERNAL CARE FOR UNSP TYPE SCAR FROM PREVIOUS DEL SNOMED Code(s): 415960272 (2) 37 or more weeks gestation of Current Visit: No Status: Acute Code(s): NSN9081 - SNOMED Code(s): 89826755 (3) Gestational hypertension Current Visit: No Status: Acute Code(s): O13.9 - GESTATIONAL HTN W/O SIGNIFICANT PROTEINURIA, UNSP TRIMESTER SNOMED Code(s): 15237123
[2021-03-20 07:52] LABS: Basophils % (A) 0 %; Eosinophils # (A) 0.1 k/uL (0-0.7); Eosinophils % (A) 1 %; HCT 34.9 % (34.0-46.0); HGB 11.8 gm/dL (11.4-16.0); Lymphocytes # (A) 1.8 k/uL (1.0-4.8); Lymphocytes % (A) 14 %; MCH 29.9 pg (25.0-35.0); MCHC 33.8 g/dL (31.0-37.0); MCV 88.4 fL (80.0-100.0); Mean Platelet Volume 9.3; Monocytes # (A) 0.6 k/uL (0-1.0); Monocytes % (A) 5 %; Neutrophils # (A) 9.6 k/uL (1.3-7.7); Neutrophils % (A) 78 %; Platelet Count 184 k/uL (150-450); RBC 3.95 m/uL (3.80-5.40); RDW 12.7 % (11.5-15.5); WBC 12.3 k/uL (3.8-10.6)
[2021-03-20] MEDS: ACETAMINOPHEN TAB 500 MG TAB PO PRN ×2 (08:15→16:16)
--- NOTE | 2021-03-20 09:49 | P.PN ---
Progress Note - Text Progress Note Date: 03/20/21 Pt w/o complaints. Ambulating w/o paresthesia or weakness. Pruritis mild. Denies headache. Pain controlled. Spinal site clean and dry. A/P POD#1 s/p with spinal duramorph. - Doing well
[2021-03-20] MEDS: diphenhydrAMINE 50 MG/ML 1 ML VIAL IVP PRN (11:29)
[2021-03-20] MEDS: IBUPROFEN 600 MG TAB PO PRN (19:49)
[2021-03-20] MEDS: SENNOSIDES-DOCUSATE SODIUM 1 EACH TAB PO PRN (19:49)
[2021-03-21] MEDS: ACETAMINOPHEN TAB 500 MG TAB PO PRN ×2 (00:12→09:21)
[2021-03-21] MEDS: IBUPROFEN 600 MG TAB PO PRN ×2 (04:43→11:21)
--- NOTE | 2021-03-21 08:08 | P.DS ---
Providers Date of admission: 03/19/21 13:27 Expected date of discharge: 03/21/21 Attending physician: Vahe Lizama Primary care physician: Stated None - Discharge Diagnosis(es) (1) Gestational hypertension Current Visit: No Status: Acute (2) Status post repeat low transverse section Current Visit: Yes Status: Acute Hospital Course: Patient presented at 37 weeks with elevated blood pressures and an unfavorable her cervix with history of previous . She underwent a repeat low transverse . Postoperative course was uncomplicated. Her blood pressures are stable at 110s to 120s over 60s to 80s. She denies headache, nausea, vomiting, chest pain, shortness of breath or any calf pain. Her incision is clean, dry, intact with chriss. Patient's pain is well-controlled. She is ambulating voiding without difficulty and tolerating regular diet. This patient will be discharged postoperative day #2 in stable condition to follow-up with Dr. Lizama in one week. Plan - Discharge Summary New Discharge Prescriptions: New oxyCODONE HCL [OxyIR] 5 mg PO Q4HR PRN #18 tab PRN Reason: Pain Ibuprofen [Motrin] 600 mg PO Q6H PRN #30 tab PRN Reason: Pain No Action Aspirin 81 mg PO DAILY Pediatric Multivitamin No.30 [Multivitamin Children's Gummies] 1 tab PO DAILY Discharge Medication List Aspirin 81 mg PO DAILY 03/19/21 [History] Pediatric Multivitamin No.30 [Multivitamin Children's Gummies] 1 tab PO DAILY 03/19/21 [History] Ibuprofen [Motrin] 600 mg PO Q6H PRN #30 tab 03/20/21 [Rx] oxyCODONE HCL [OxyIR] 5 mg PO Q4HR PRN #18 tab 03/20/21 [Rx] Follow up Appointment(s)/Referral(s): Vahe Lizama MD [STAFF PHYSICIAN] - 04/30/21 11:15 am (Post Op 03-26-2021 @ 9:45) Patient Instructions/Handouts: (DC) Activity/Diet/Wound Care/Special Instructions: No intercourse or anything per vagina for 6 weeks. No heavy lifting or strenuous activity for 6 weeks. Please call if any fever, chills, excessive vaginal bleeding, and/or abdominal pain. Discharge Disposition: HOME SELF-CARE
[2021-03-21 09:05] VITALS: BP 137/80; PULSE 70; RESP 18; TEMP 98.9
[2021-03-21] MEDS: SENNOSIDES-DOCUSATE SODIUM 1 EACH TAB PO PRN (09:21)
== END 2021-03-21 12:10 | disposition home or self-care (01) | DRG 788 ==
LOC: FBPOP 12:38 → 4FBP 13:27
PROVIDERS: ADMIT Obstetrics & Gynecology; ATTEND Obstetrics & Gynecology
PROC: 10D00Z1 Extraction of Products of Conception, Low, Open Approach (ICD-10-PCS; principal; 2021-03-19 16:30)
DX: O13.4 Gestational [pregnancy-induced] hypertension without significant proteinuria, complicating childbirth (principal); L29.9 Pruritus, unspecified; Z3A.37 37 weeks gestation of pregnancy; Z37.0 Single live birth; O99.73 Diseases of the skin and subcutaneous tissue complicating the puerperium; O34.211 Maternal care for low transverse scar from previous cesarean delivery; N85.8 Other specified noninflammatory disorders of uterus; Z79.82 Long term (current) use of aspirin; Z79.899 Other long term (current) drug therapy; Z82.49 Family history of ischemic heart disease and other diseases of the circulatory system; Z80.9 Family history of malignant neoplasm, unspecified
CPT/HCPCS: 59025; 81003; 82565; 82570; 83615; 84156; 84450; 84460; 84520; 84550; 85025; 85610; 85730; 86850; 86900; 86901; 88307